=== PATIENT | female | born 1965 | race American Indian/Alaskan Native ===

== ENCOUNTER → 2019-02-22 | Outpatient (CLI) | payer MEDICARE ==
[~2019-02-22] MED LIST: AMOXICILLIN 8751 TAB PO; CELEXA10 MG PO; DESYREL 100MG100 MG PO; EFFEXOR 75M75 MG/TAB PO; ESTRACE 1MG1 MG/TAB PO; MSIR30 MG PO; NEURONTIN800 MG/TAB PO; OXYCONTIN 10MG10 MG PO; PERCOCET 325 MG1 TAB PO; PREMARIN VAG42.5 GM VG; PRILOSEC 20MG20 MG PO; ULTRAM 50MG TAB50 MG PO
== END ==
LOC: COL.RAD 08:25
DX: R10.9 Unspecified abdominal pain (principal)

== ENCOUNTER → 2019-06-23 | Outpatient (CLI) | payer MEDICARE | LOC: COL.RAD 06-21 10:15 | DX: M25.511 Pain in right shoulder (principal); Z98.82 Breast implant status | CPT/HCPCS: Q9967 ==

== ENCOUNTER → 2019-07-25 | Outpatient (CLI) | payer MEDICARE | LOC: COL.RAD 13:48 | DX: S46.111A Strain of muscle, fascia and tendon of long head of biceps, right arm, initial encounter (principal) ==

== ENCOUNTER 2020-10-31 08:44 | Outpatient (CLI) | payer MEDICARE ==
[~2020-10-31] VITALS: Ht 147.3 cm; Wt 72.0 kg
[~2020-10-31 08:44] MED LIST changes: +ASPIRIN 81M81 MG/TA2 PO; +PROTONIX 40MG T40 MG PO; +VALTREX 50500 MG/TAB PO; +ZYBAN150 M1
[2020-10-31 09:30] VITALS: BP 132/76; PULSE 60
[2020-10-31 10:24] VITALS: BP 133/80; PULSE 57
[2020-10-31 10:27] VITALS: BP 133/80; PULSE 57
[2020-10-31 10:30] VITALS: BP 130/80; PULSE 56
[2020-10-31 10:45] VITALS: BP 135/82; PULSE 52
[2020-10-31 11:00] VITALS: BP 132/82; PULSE 58
--- NOTE | 2020-10-31 12:00 | NUR ---
Discharge instructions given to pt.Pt verbalizes understanding.Pt escorted out by this nurse.
== END 2020-10-31 12:21 ==
LOC: COL.RAD 08:44
DX: M47.816 Spondylosis without myelopathy or radiculopathy, lumbar region (principal); M48.061 Spinal stenosis, lumbar region without neurogenic claudication
CPT/HCPCS: Q9965

== ENCOUNTER 2021-04-09 09:45 | Outpatient (RCR) | payer MEDICARE | END 2021-04-11 | disposition home or self-care (01) | LOC: PT.GENESIS | DX: M43.16 Spondylolisthesis, lumbar region (principal); M51.36 Other intervertebral disc degeneration, lumbar region; M85.80 Other specified disorders of bone density and structure, unspecified site ==

== ENCOUNTER 2021-06-05 08:00 | Outpatient (RCR) | payer MEDICARE | END 2021-06-09 | disposition home or self-care (01) | LOC: PT.GENESIS | DX: M51.36 Other intervertebral disc degeneration, lumbar region (principal); M43.16 Spondylolisthesis, lumbar region; M85.80 Other specified disorders of bone density and structure, unspecified site ==

== ENCOUNTER → 2021-06-24 | Outpatient (CLI) | payer MEDICARE | LOC: MHCPAIN 14:15 | DX: M47.817 Spondylosis without myelopathy or radiculopathy, lumbosacral region (principal); M54.50 Low back pain, unspecified; M53.3 Sacrococcygeal disorders, not elsewhere classified; M96.1 Postlaminectomy syndrome, not elsewhere classified | CPT/HCPCS: G0463 ==

== ENCOUNTER → 2021-07-03 | Outpatient (CLI) | payer MEDICARE | LOC: MHCPAIN 08:44 | DX: M47.817 Spondylosis without myelopathy or radiculopathy, lumbosacral region (principal); M54.50 Low back pain, unspecified; M53.3 Sacrococcygeal disorders, not elsewhere classified; M96.1 Postlaminectomy syndrome, not elsewhere classified ==

== ENCOUNTER → 2021-07-24 | Outpatient (CLI) | payer MEDICARE | LOC: MHCPAIN 09:21 | DX: M47.817 Spondylosis without myelopathy or radiculopathy, lumbosacral region (principal); M54.50 Low back pain, unspecified; M53.3 Sacrococcygeal disorders, not elsewhere classified | CPT/HCPCS: G0463 ==

== ENCOUNTER → 2021-07-30 | Outpatient (CLI) | payer MEDICARE | LOC: MC.RAD 10:09 | DX: Z12.31 Encounter for screening mammogram for malignant neoplasm of breast (principal) ==

== ENCOUNTER → 2021-08-18 | Outpatient (CLI) | payer MEDICARE | LOC: MHCPAIN 12:39 | DX: M47.817 Spondylosis without myelopathy or radiculopathy, lumbosacral region (principal); M47.814 Spondylosis without myelopathy or radiculopathy, thoracic region; M96.1 Postlaminectomy syndrome, not elsewhere classified; M54.50 Low back pain, unspecified; M53.3 Sacrococcygeal disorders, not elsewhere classified; M54.6 Pain in thoracic spine | CPT/HCPCS: G0463; J1100; J2250; J3010 ==

== ENCOUNTER 2022-07-29 09:45 | Outpatient (RCR) | payer MEDICARE | END 2022-08-09 | disposition home or self-care (01) | LOC: WSPT | DX: M51.36 Other intervertebral disc degeneration, lumbar region (principal); Z98.1 Arthrodesis status ==